=== PATIENT | male | born 1980 | race Hispanic/Latino ===

== ENCOUNTER 2017-11-12 12:07 | Outpatient (CLI) | payer OTHER ==
[~2017-11-12 12:07] MED LIST: Iopamidol 370 76% 100 ML VIAL ONE
== END 2017-11-12 12:08 | disposition home or self-care (01) ==
LOC: BICCT 12:07
PROVIDERS: ATTEND Urology
DX: R31.29 Other microscopic hematuria (principal)
CPT/HCPCS: 74178